=== PATIENT | male | born 1945 | race Caucasian/White ===

== ENCOUNTER 2016-11-29 09:27 | Outpatient (CLI) | payer MEDICARE ==
[2016-11-29 18:44] LABS: CALCIUM 9.6 mg/dL (8.5-10.3); CREATININE 1.7 mg/dL (0.6-1.2); PHOSPHORUS 3.2 mg/dL (2.5-4.6); POTASSIUM 3.7 mmol/L (3.5-5.0)
== END 2016-11-29 09:28 | disposition home or self-care (01) ==
LOC: LAB.F 09:27
PROVIDERS: ATTEND Internal Medicine Cardiovascular Disease
DX: I50.22 Chronic systolic (congestive) heart failure (principal)
CPT/HCPCS: 36415; 80069

== ENCOUNTER 2022-07-25 08:54 | Outpatient (CLI) | payer MEDICARE | END 2022-07-25 08:55 | disposition EMS.NT | LOC: EMS 08:54 | DX: Z04.6 Encounter for general psychiatric examination, requested by authority (principal) ==